=== PATIENT | female | born 1985 | race Caucasian/White ===

== ENCOUNTER 2018-09-03 22:51 | Emergency (ER) | payer OTHER ==
[~2018-09-03] VITALS: Ht 162.6 cm; Wt 68.0 kg
[~2018-09-03 22:51] MED LIST: CYCL10TA9 PO; DOXY100C2 PO; HYDR-707 PO; HYDR1TAB PO; METR500T PO; NAPR-243 PO
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
[2018-09-03] MEDS ORDERED: LEVETIRACETAM INJECTION 1,000 MG in NS (IVPB) 100 ML IV ONE (23:15)
[2018-09-03 23:21] LABS: BASOPHILS # (AUTO) 0.1 10^3/uL (0.0-0.1); BASOPHILS % (AUTO) 1 % (0-10); EOSINOPHILS # (AUTO) 0.1 10^3/uL (0.0-0.3); EOSINOPHILS % (AUTO) 1 % (0-10); HEMATOCRIT 37 % (35-52); HEMOGLOBIN 11.8 G/DL (11.5-16.0); LYMPHOCYTES # (AUTO) 3.8 X 10^3 (1.0-4.0); LYMPHOCYTES % (AUTO) 35 % (12-44); MEAN CORPUSCULAR HEMOGLOBIN 27 PG (25-34); MEAN CORPUSCULAR HGB CONC 32 G/DL (32-36); MEAN CORPUSCULAR VOLUME 83 FL (80-99); MEAN PLATELET VOLUME 10.7 FL (7.4-10.4); MONOCYTES % (AUTO) 9 % (0-12); NEUTROPHILS # (AUTO) 5.8 X 10^3 (1.8-7.8); NEUTROPHILS % (AUTO) 54 % (42-75); PLATELET COUNT 248 10^3/uL (130-400); WHITE BLOOD COUNT 10.7 10^3/uL (4.3-11.0)
[2018-09-03 23:35] LABS: ALANINE AMINOTRANSFERASE 30 U/L (0-55); ALBUMIN 4.3 GM/DL (3.2-4.5); ALKALINE PHOSPHATASE 55 U/L (40-136); BILIRUBIN,TOTAL 0.2 MG/DL (0.1-1.0); BUN/CREATININE RATIO 24; CALCIUM 9.3 MG/DL (8.5-10.1); CARBON DIOXIDE 23 MMOL/L (21-32); CHLORIDE 104 MMOL/L (98-107); CREATININE SERUM 0.88 MG/DL (0.60-1.30); GFR ESTIMATED > 60; GLUCOSE 97 MG/DL (70-105); POTASSIUM 4.4 MMOL/L (3.6-5.0); SODIUM 139 MMOL/L (135-145); TOTAL PROTEIN 7.6 GM/DL (6.4-8.2)
[2018-09-04] MEDS ORDERED: ACETAMINOPHEN 500 MG TAB (TYLENOL) PO ONE
[2018-09-04 00:18] LABS: BACTERIA,URINE TRACE /HPF; BILIRUBIN,URINE 3+ (NEGATIVE); CLARITY,URINE CLEAR; COLOR,URINE YELLOW; GLUCOSE, URINE (UA) 4+ (NEGATIVE); KETONES,URINE 3+ (NEGATIVE); LEUKOCYTE ESTERASE ,URINE 3+ (NEGATIVE); NITRITE,URINE POSITIVE (NEGATIVE); PH,URINE 7 (5-9); PROTEIN,URINE 4+ (NEGATIVE)
[2018-09-04 00:19] LABS: SQUAMOUS EPITHELIAL CELL,UR RARE /HPF; UROBILINOGEN,URINE NORMAL (NORMAL)
[2018-09-04 00:20] LABS: AMPHETAMINE SCREEN, URINE NEGATIVE (NEGATIVE); BARBITURATE SCREEN URINE NEGATIVE (NEGATIVE); BENZODIAZEPINES SCREEN URINE NEGATIVE (NEGATIVE); CANNABINOID SCREEN, URINE NEGATIVE (NEGATIVE); COCAINE SCREEN URINE NEGATIVE (NEGATIVE); METHADONE STAT NEGATIVE (NEGATIVE); METHAMPHETAMINE SCREEN URINE S NEGATIVE (NEGATIVE); OPIATE SCREEN URINE NEGATIVE (NEGATIVE); OXYCODONE STAT NEGATIVE (NEGATIVE); PROPOXYPHENE STAT NEGATIVE (NEGATIVE); TRICYCLIC ANTIDEPRESSANTS SCRE NEGATIVE (NEGATIVE)
[2018-09-04] MEDS ORDERED: LEVE100015 PO (00:27)
[2018-09-04 00:33] VITALS: BP 134/92
== END 2018-09-04 00:40 | disposition home or self-care (01) ==
LOC: EDUNIT# 22:51 → ER 22:53
DX: G40.309 Generalized idiopathic epilepsy and epileptic syndromes, not intractable, without status epilepticus (principal); Z87.891 Personal history of nicotine dependence
CPT/HCPCS: 36415; 80053; 80306; 81000; 84703; 85025; 86141; 87088

== ENCOUNTER 2019-02-23 21:50 | Emergency (ER) | payer MEDICAID, OTHER ==
[~2019-02-23] VITALS: Ht 162.5 cm; Wt 61.2 kg
[~2019-02-23 21:50] MED LIST changes: +LEVE100015 PO
--- NOTE | 2019-02-23 22:46 | ED Lower Extremity ---
General Chief Complaint: Lower Extremity Stated Complaint: R ANKLE INJ Nursing Triage Note: rolled right ankle lasst night while fishing. Nursing Sepsis Screen: No Definite Risk Source: patient Exam Limitations: no limitations History of Present Illness Date Seen by Provider: Feb 23, 2019 Time Seen by Provider: 22:11 Initial Comments 33-year-old female who presents to the emergency room with complaints of right ankle pain after rolling her ankle last night while fishing. She has mild swelling, ecchymosis to the right ankle. Pain/Injury Location: right ankle Allergies and Home Medications Allergies Coded Allergies: No Known Drug Allergies (Unverified , 03/15/11) Home Medications Cyclobenzaprine Hcl 10 Mg Tablet, 10 MG PO NEEDED, (Reported) Cyclobenzaprine Hcl 10 Mg Tablet, 1 EACH PO BID Prescribed by: MARTIN RUTLEDGE on 11/03/112028 Doxycycline Hyclate 100 Mg Capsule, 1 EACH PO BID Prescribed by: MICHELLE BAH on 03/15/111847 Hydrocodone Bit/Acetaminophen 1 Each Tablet, 1-2 EACH PO Q4HR PRN Prescribed by: MICHELLE BAH on 03/15/111847 Hydrocodone Bit/Acetaminophen 1 Each Tablet, 1-2 EACH PO Q 4 - 6 HR PRN Prescribed by: MARTIN RUTLEDGE on 11/03/112028 Levetiracetam 1,000 Mg Tablet, 1,000 MG PO BID Prescribed by: VINH LOCKETT on 09/04/18 0027 Metronidazole 500 Mg Tablet, 1 EACH PO BID Prescribed by: MICHELLE BAH on 03/15/111847 Naproxen 500 Mg Tablet, 1 EACH PO BID - TID PRN Prescribed by: MARTIN RUTLEDGE on 11/03/112028 Patient Home Medication List Home Medication List Reviewed: Yes Review of Systems Constitutional: see HPI; No chills, No fever Musculoskeletal: see HPI, joint pain (right ankle pain) All Other Systems Reviewed Negative Unless Noted: Yes Past Zjhbdhb-Wjzjeb-Xtsybe Hx Past Med/Social Hx: Reviewed Nursing Past Med/Soc Hx Patient Social History Alcohol Use: Denies Use Recreational Drug Use: Yes Drug of Choice: methamphetamines Type Used: Cigarettes Former Smoker, Quit: Aug 15, 2012 2nd Hand Smoke Exposure: No Recent Foreign Travel: No Contact w/Someone Who Travel: No Recent Infectious Disease Expo: No Recent Hopitalizations: No Physical Abuse: No Sexual Abuse: No Mistreated: No Fear: No Seasonal Allergies Seasonal Allergies: No Past Medical History Surgeries: No Respiratory: No Cardiac: No Neurological: Yes Seizure Disorder : No Genitourinary: No Gastrointestinal: No Musculoskeletal: No Endocrine: No HEENT: No Cancer: No Psychosocial: No Integumentary: No Blood Disorders: No Family Medical History Reviewed Nursing Family Hx Physical Exam Vital Signs Vital Signs - First Documented 02/23/19 22:00 Temp 36.7 Pulse 114 Resp 18 B/P (MAP) 144/95 (111) Pulse Ox 98 Capillary Refill : Less Than 3 Seconds Height, Weight, BMI Height: 5'4.00" Weight: 150lbs. oz. 68.914769fw; 23.00 BMI Method:Stated General Appearance: WD/WN, no apparent distress Cardiovascular: normal peripheral pulses, regular rate, rhythm, no edema, no gallop, no JVD, no murmur Respiratory: chest non-tender, lungs clear, normal breath sounds, no respiratory distress, no accessory muscle use Ankles: right ankle ecchymosis, right ankle pain, right ankle swelling Neurologic/Tendon: normal sensation, normal motor functions, normal tendon functions, responds to pain, no evidence tendon injury, other (normal capillary refill and distal pulses present.) Neurologic/Psychiatric: alert, normal mood/affect, oriented x 3 Skin: normal color, warm/dry Progress/Results/Core Measures Results/Orders My Orders Orders - DYLON GUIDRY Ankle, Right, 3 Views (02/23/19 22:10) Vital Signs/I&O 02/23/19 02/23/19 22:00 23:00 Temp 36.7 36.7 Pulse 114 114 Resp 18 18 B/P (MAP) 144/95 (111) 144/95 (111) Pulse Ox 98 98 Blood Pressure Mean: 111 POS Diagnostic Imaging Diagonstic Imaging: Xray Comments [facility], [place] NAME: SIDRA MONTGOMERY [facility] REC#: [id number] PT STATUS: DEP ER : 1985 PHYSICIAN: DYLON GUIDRY ADMIT DATE: 02/23/19/ER Signed Date of Exam:02/23/19 ANKLE, RIGHT, 3 VIEWS EXAMINATION: Right ankle radiograph, 3 views. COMPARISON: None. HISTORY: 33-year-old female, fall. Right ankle pain and swelling. FINDINGS: There is a normal variant os trigonum. There is no tibiotalar joint effusion. The alignment of the ankle mortise is unremarkable. There is no identified acute fracture. There is mild soft tissue swelling adjacent to the distal fibula. IMPRESSION: 1. Mild soft tissue swelling adjacent to the distal fibula. 2. No identified acute fracture or abnormal bone alignment. Dictated by: Dictated on workstation # [id number] Dict: 02/24/19604 Trans: 02/24/19837 CV [id number] Interpreted by: ALEXANDRA MCCANN MD Electronically signed by: ALEXANDRA MCCANN MD 02/24/19837 Reviewed: Reviewed by Me Departure Impression Primary Impression: Sprain and strain of ankle Disposition: 01 HOME, SELF-CARE Condition: Stable/Unchanged Departure-Patient Inst. Decision time for Depature: 22:33 Referrals: [facility] [place] Primary Care Physician LUIS M KAUR APRN (Family) Primary Care Physician Patient Instructions: Ankle Sprain (DC) Add. Discharge Instructions: Ice to the sore areas at 20 minute intervals. Tylenol and ibuprofen as directed by the bottle for pain relief. Use the Giovany bandage, ankle brace, and crutches as needed. Follow-up with your primary care provider for recheck. Return back to the emergency room for worsening symptoms or concerns as needed. All discharge instructions reviewed with patient and/or family. Voiced understanding. DYLON GUIDRY Feb 23, 2019 22:45 POS
[2019-02-23 23:00] VITALS: BP 144/95
--- NOTE | 2019-02-24 07:08 | Diagnostic Imaging Report ---
EXAMINATION: Right ankle radiograph, 3 views. COMPARISON: None. HISTORY: 33-year-old female, fall. Right ankle pain and swelling. FINDINGS: There is a normal variant os trigonum. There is no tibiotalar joint effusion. The alignment of the ankle mortise is unremarkable. There is no identified acute fracture. There is mild soft tissue swelling adjacent to the distal fibula. IMPRESSION: 1. Mild soft tissue swelling adjacent to the distal fibula. 2. No identified acute fracture or abnormal bone alignment. Dictated by: Dictated on workstation # [id number]
== END 2019-02-23 23:06 | disposition home or self-care (01) ==
LOC: EDUNIT# 21:50 → ER 21:50
DX: S93.401A Sprain of unspecified ligament of right ankle, initial encounter (principal); G40.909 Epilepsy, unspecified, not intractable, without status epilepticus; Z87.891 Personal history of nicotine dependence; X50.1XXA Overexertion from prolonged static or awkward postures, initial encounter
CPT/HCPCS: 73610

== ENCOUNTER 2020-11-07 06:33 | Emergency (ER) | payer MEDICAID ==
[~2020-11-07] VITALS: Ht 162.6 cm; Wt 52.2 kg
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
[2020-11-07] MEDS ORDERED: IBUPROFEN 600 MG (MOTRIN) TAB PO ONE (07:15)
[2020-11-07] MEDS ORDERED: OXYMETAZOLINE (AFRIN) 0.05% NA 30 ML BTL ONE (07:15)
[2020-11-07 07:29] VITALS: BP 133/98
[2020-11-07] MEDS ORDERED: OXYMETAZOLINE (AFRIN) 0.05% NA 30 ML BTL SCH (09:00)
== END 2020-11-07 07:29 | disposition home or self-care (01) ==
LOC: EDUNIT# 06:33 → ER 06:37
DX: S01.81XA Laceration without foreign body of other part of head, initial encounter (principal); G40.909 Epilepsy, unspecified, not intractable, without status epilepticus; Z79.899 Other long term (current) drug therapy; W18.30XA Fall on same level, unspecified, initial encounter
CPT/HCPCS: 99283

== ENCOUNTER 2022-05-09 03:31 | Emergency (ER) | payer MEDICAID ==
[~2022-05-09] VITALS: Ht 162.5 cm; Wt 56.6 kg
[2022-05-09 04:10] LABS: BASOPHILS # (AUTO) 0.1 10^3/uL (0.0-0.1); BASOPHILS % (AUTO) 1 % (0-10); EOSINOPHILS # (AUTO) 0.1 10^3/uL (0.0-0.3); EOSINOPHILS % (AUTO) 1 % (0-10); HEMATOCRIT 35 % (35-52); HEMOGLOBIN 11.4 g/dL (11.5-16.0); LYMPHOCYTES % (AUTO) 19 % (12-44); MEAN CORPUSCULAR HEMOGLOBIN 27 pg (25-34); MEAN CORPUSCULAR HGB CONC 32 g/dL (32-36); MEAN CORPUSCULAR VOLUME 83 fL (80-99); MEAN PLATELET VOLUME 9.5 fL (9.0-12.2); MONOCYTES # (AUTO) 0.9 10^3/uL (0.0-1.0); MONOCYTES % (AUTO) 9 % (0-12); NEUTROPHILS # (AUTO) 7.6 10^3/uL (1.8-7.8); NEUTROPHILS % (AUTO) 71 % (42-75); PLATELET COUNT 257 10^3/uL (130-400); WHITE BLOOD COUNT 10.7 10^3/uL (4.3-11.0)
[2022-05-09 04:12] LABS: POTASSIUM 3.3 MMOL/L (3.6-5.0)
[2022-05-09 04:13] LABS: CALCIUM 8.4 MG/DL (8.5-10.1)
[2022-05-09 04:18] LABS: CREATININE SERUM 0.85 MG/DL (0.60-1.30)
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
[2022-05-09] MEDS ORDERED: IBUPROFEN 600 MG (MOTRIN) TAB PO ONE (04:45)
[2022-05-09 04:48] VITALS: BP 141/91
--- NOTE | 2022-05-09 06:25 | Diagnostic Imaging Report ---
PROCEDURE: CT head without contrast. TECHNIQUE: Multiple contiguous axial images were obtained through the brain without the use of intravenous contrast. Auto Exposure Controls were utilized during the CT exam to meet ALARA standards for radiation dose reduction. INDICATION: Head trauma, dizziness. CT head without contrast The ventricles are normal in size, shape and position. There are no masses or hemorrhages. There are no extra-axial fluid collections. There are no skull fractures seen. IMPRESSION: Negative CT head. I agree with preliminary interpretation. Dictated by: Dictated on workstation # [id number]
== END 2022-05-09 04:50 | disposition home or self-care (01) ==
LOC: EDUNIT# 03:31 → ER 03:33
DX: S06.0X0A Concussion without loss of consciousness, initial encounter (principal); S05.12XA Contusion of eyeball and orbital tissues, left eye, initial encounter; S30.811A Abrasion of abdominal wall, initial encounter; Z28.310 Unvaccinated for COVID-19; Y04.8XXA Assault by other bodily force, initial encounter
CPT/HCPCS: 36415; 70450; 80048; 85025